=== PATIENT | female | born 1945 ===

== ENCOUNTER → 2016-05-21 | Outpatient (CLI) | payer OTHER ==
[2016-05-21 18:16] LABS: BASO % 0.7 %; BASO ABS # 0.03 K/uL (0-0.2); COMPLETE YES; EOS % 2.5 %; HEMATOCRIT 38.8 % (37-47); LYMPH % 30.6 %; LYMPH ABS # 1.33 K/uL (1.2-3.4); MEAN CORPUSCULAR HEMOGLOBIN 28.6 pg (25-34); MEAN CORPUSCULAR HGB CONC 33.2 g/dl (32-36); MEAN PLATELET VOLUME 10.2 fL (7.4-10.4); NEUT % 60.2 %; PLATELET COUNT 286 K/uL (130-400); RED BLOOD COUNT 4.51 M/uL (4.2-5.4); WHITE BLOOD COUNT 4.35 K/uL (4.8-10.8)
[2016-05-21 18:22] LABS: BLOOD UREA NITROGEN 14 mg/dl (7-18); BUN/CREATININE RATIO 20.4 (10-20); CALCIUM 9.2 mg/dl (8.5-10.1); CARBON DIOXIDE 29 mmol/L (21-32); CHLORIDE 105 mmol/L (98-107); CHOLESTEROL 266 mg/dl (0-200); CREATININE 0.69 mg/dl (0.60-1.20); GLUCOSE 90 mg/dl (70-99); POTASSIUM 3.8 mmol/L (3.5-5.1); SODIUM 141 mmol/L (136-145)
[2016-05-21 18:29] LABS: ALKALINE PHOSPHATASE 66 U/L (45-117); ALT/SGPT 25 U/L (12-78); AST/SGOT 24 U/L (15-37); CHOLESTEROL/HDL RATIO 4.4; HDL CHOLESTEROL 61 mg/dl; LDL CHOLESTEROL CALCULATED 181 mg/dl; TRIGLYCERIDES 122 mg/dl (0-150); VERY LOW DENSITY LIPOPROT CALC 24 mg/dl
[2016-05-21 20:23] LABS: LYME DISEASE AB IGG NEG (NEG); LYME DISEASE AB IGM NEG (NEG)
== END | disposition home or self-care (01) ==
LOC: C.LABMFLN 14:47
PROVIDERS: ATTEND Family Medicine
DX: F32.9 Major depressive disorder, single episode, unspecified (principal); E78.5 Hyperlipidemia, unspecified; M25.50 Pain in unspecified joint; Z11.59 Encounter for screening for other viral diseases

== ENCOUNTER → 2016-08-01 | Outpatient (CLI) | payer OTHER ==
--- NOTE | 2016-08-02 07:55 | MAMMOGRAPHY REPORT ---
BILATERAL DIGITAL SCREENING MAMMOGRAM TOMOSYNTHESIS WITH CAD: 08/01/2016 CLINICAL HISTORY: Routine screening. Patient has no complaints. TECHNIQUE: Breast tomosynthesis in addition to standard 2D mammography was performed. Current study was also evaluated with a Computer Aided Detection (CAD) system. COMPARISON: Comparison is made to exams dated: 05/03/2015 mammogram, 10/18/2014 ultrasound, 09/02/2014 ammogram - [facility], 06/09/2013 mammogram, 12/18/2011 mammogram, and 12/12/2010 [facility] mogram. BREAST COMPOSITION: The tissue of both breasts is heterogeneously dense, which may obscure small ma sses. FINDINGS: No suspicious masses, calcifications, or areas of architectural distortion are noted in e ither breast. There has been no significant interval change compared to prior exams. Biopsy marker clip is again noted in the left anterior breast. Bilateral benign-appearing calcifications are not significantly changed. IMPRESSION: ACR BI-RADS CATEGORY 2: BENIGN There is no mammographic evidence of malignancy. A 1 year screening mammogram is recommended. The p atient will receive written notification of the results. Approximately 10% of breast cancers are not detected with mammography. A negative mammographic repor t should not delay biopsy if a clinically suggestive mass is present. Cher Quinones M.D. /:08/01/2016 15:37:49 Tinner Automatic: Briana Eaton RT(R)(M), [facility] letter sent: Normal 1/2 BI-RADS Code: ACR BI-RADS Category 2: Benign
== END | disposition home or self-care (01) ==
LOC: C.MAMM 14:17
PROVIDERS: ATTEND Family Medicine
DX: Z12.31 Encounter for screening mammogram for malignant neoplasm of breast (principal)

== ENCOUNTER → 2016-10-23 | Outpatient (CLI) | payer OTHER ==
[2016-10-23 18:01] LABS: BASO % 1.2 %; BASO ABS # 0.05 K/uL (0-0.2); COMPLETE YES; EOS % 2.3 %; HEMATOCRIT 39.3 % (37-47); LYMPH % 29.5 %; LYMPH ABS # 1.27 K/uL (1.2-3.4); MEAN CELL VOLUME 87.5 fL (80-100); MEAN CORPUSCULAR HEMOGLOBIN 28.5 pg (25-34); MEAN CORPUSCULAR HGB CONC 32.6 g/dl (32-36); MEAN PLATELET VOLUME 9.7 fL (7.4-10.4); MONO % 5.8 %; NEUT % 61.2 %; PLATELET COUNT 285 K/uL (130-400); RED BLOOD COUNT 4.49 M/uL (4.2-5.4)
[2016-10-23 18:28] LABS: FERRITIN 39.5 ng/ml (8.0-388.0); THYROID STIMULATING HORMONE 3.16 uIu/ml (0.300-4.500)
--- NOTE | 2016-10-31 12:53 | CODING QUERY MEDICAL NECESSITY ---
CQSUPPORTING DIAGNOSIS NEEDED A supporting diagnosis is required for the test/procedure performed on this patient in order for us to be reimbursed by the patient's insurance. Please provide a supporting diagnosis for the following test/procedure listed below next to the test name along with your signature. *If there is no additional diagnosis for this patient that would support the following test/procedure please document that below next to the test/procedure. Test(s)/Procedure(s) that require a supporting diagnosis: DOS 10/23/16 VITAMIN B12 TEST Provider Signature: Date: Thank you Eneida Leiva Health Information Management Once completed, please kindly fax back to [phone] For questions please call [phone]
== END | disposition home or self-care (01) ==
LOC: C.LABMFLN 13:05
PROVIDERS: ATTEND Family Medicine
DX: R68.89 Other general symptoms and signs (principal); R53.83 Other fatigue

== ENCOUNTER → 2017-12-23 | Outpatient (CLI) | payer OTHER ==
--- NOTE | 2017-12-24 14:47 | MAMMOGRAPHY REPORT ---
BILATERAL DIGITAL SCREENING MAMMOGRAM TOMOSYNTHESIS WITH CAD: 12/23/2017 CLINICAL HISTORY: Routine screening. Patient has no complaints. TECHNIQUE: Breast tomosynthesis in addition to standard 2D mammography was performed. Current study w as also evaluated with a Computer Aided Detection (CAD) system. COMPARISON: Comparison is made to exams dated: 08/01/2016 mammogram, 05/03/2015 mammogram, 10/18/2014 [facility] mogram, 09/02/2014 mammogram, 10/18/2014 ultrasound - [facility], and [place]/09/[place]. BREAST COMPOSITION: The tissue of both breasts is heterogeneously dense, which may obscure small mass es. FINDINGS: No suspicious masses, calcifications, or areas of architectural distortion are noted in either breast . There has been no significant interval change compared to prior exams. Scattered bilateral benign-a ppearing calcifications are not significantly changed. A biopsy clip is again noted within the left anterior breast. Nodular asymmetry in the left lateral posterior breast is stable compared to multip le prior exams including the 2009 and 2013 exams. IMPRESSION: ACR BI-RADS CATEGORY 2: BENIGN There is no mammographic evidence of malignancy. A 1 year screening mammogram is recommended.( 019) The patient will receive written notification of the results. Some breast cancers are not detected with mammography. A negative mammographic report should not franky y biopsy if a clinically suggestive mass is present. Cher Quinones M.D. ah/:12/23/2017 14:50:27 Cylinder Die Machine Helper: RT Toñito(Juana)(M), [facility] letter sent: Normal 1/2 BI-RADS Code: ACR BI-RADS Category 2: Benign
== END | disposition home or self-care (01) ==
LOC: C.MAMM 12:27
PROVIDERS: ATTEND Family Medicine
DX: M85.89 Other specified disorders of bone density and structure, multiple sites (principal); Z78.0 Asymptomatic menopausal state; Z12.31 Encounter for screening mammogram for malignant neoplasm of breast

== ENCOUNTER 2019-06-12 10:46 | Inpatient (IN) ==
--- NOTE | 2019-05-12 20:20 | PAT Medication Instructions ---
Medication Instructions Date of Service May 12, 2019 Home Medications Medication Instructions Recorded Lactobacillus 1 cap PO DAILY #90 cap 12/22/18 acidophilus-Bifidobac.animalis 31 billion cell capsule buspirone 5 mg tablet 5 mg PO BID #180 tab 12/22/18 cholecalciferol (vitamin D3) 25 1,000 units PO DAILY #90 cap 12/22/18 mcg (1,000 unit) capsule cyanocobalamin (vitamin B-12) 1,000 mcg PO DAILY #90 tab 12/22/18 1,000 mcg tablet alendronate 70 mg tablet 70 mg PO WEEKLY #4 tab 01/06/19 Lactobacillus acidophilus-Bifidobac.animalis 31 billion cell capsule 1 cap PO DAILY #90 cap 12/22/18 [Rx Confirmed 05/12/19] buspirone 5 mg tablet 5 mg PO BID #180 tab 12/22/18 [Rx Confirmed 05/12/19] cholecalciferol (vitamin D3) 25 mcg (1,000 unit) capsule 1,000 units PO DAILY #90 cap 12/22/18 [Rx Confirmed 05/12/19] cyanocobalamin (vitamin B-12) 1,000 mcg tablet 1,000 mcg PO DAILY #90 tab 12/22/18 [Rx Confirmed 05/12/19] alendronate 70 mg tablet 70 mg PO WEEKLY #4 tab 01/06/19 [Rx Confirmed 05/12/19] calcium carbonate 780 mg PO DAILY 05/12/19 [History Confirmed 05/12/19] melatonin 5 mg PO HS 05/12/19 [History Confirmed 05/12/19] multivitamin 1 tab PO QAM 05/12/19 [History Confirmed 05/12/19] rosuvastatin 10 mg PO QPM 05/12/19 [History Confirmed 05/12/19] sertraline 100 mg PO QPM 05/12/19 [History Confirmed 05/12/19] Continue as directed alendronate 70 mg tablet 70 mg PO WEEKLY #4 tab 01/06/19 [Rx Confirmed 05/12/19] DO NOT take the morning of surgery Lactobacillus acidophilus-Bifidobac.animalis 31 billion cell capsule 1 cap PO DAILY #90 cap 12/22/18 [Rx Confirmed 05/12/19] cholecalciferol (vitamin D3) 25 mcg (1,000 unit) capsule 1,000 units PO DAILY #90 cap 12/22/18 [Rx Confirmed 05/12/19] cyanocobalamin (vitamin B-12) 1,000 mcg tablet 1,000 mcg PO DAILY #90 tab 12/22/18 [Rx Confirmed 05/12/19] calcium carbonate 780 mg PO DAILY 05/12/19 [History Confirmed 05/12/19] multivitamin 1 tab PO QAM 05/12/19 [History Confirmed 05/12/19] Take morning of surgery With a small sip of water, OTHERWISE NOTHING TO EAT OR DRINK AFTER MIDNIGHT: buspirone 5 mg tablet 5 mg PO BID #180 tab 12/22/18 [Rx Confirmed 05/12/19] Take evening before surgery buspirone 5 mg tablet 5 mg PO BID #180 tab 12/22/18 [Rx Confirmed 05/12/19] melatonin 5 mg PO HS 05/12/19 [History Confirmed 05/12/19] rosuvastatin 10 mg PO QPM 05/12/19 [History Confirmed 05/12/19] sertraline 100 mg PO QPM 05/12/19 [History Confirmed 05/12/19] Other Notes If you have any questions please call us at [phone] or [phone] or [phone] or [phone]
--- NOTE | 2019-05-13 13:14 | Anesthesiology Consultation ---
Date of Service May 13, 2019 Assessment & Plan (1) Encounter for pre-operative examination: Chart Review Chart Review: Acceptable Risk for Surgery and Patient seen in Pre Admission Testing Teaching & Discussion Pre-Anesthesia Teaching/Discussion Notes: Instructed NPO after midnight before surgery,except medications with 15 cc of water. Medication instructions provided according to the PAT guidelines. History Surgery Operation Date: 06/12/19 08:50 Proposed Procedures p Left Anterior Total Hip Arthroplasty - Clemente Vargas, Height/Weight Height: 5 ft 2.5 in Weight: 57 kg Allergies Allergy/AdvReac Type Severity Reaction Status Date / Time cephalexin [From Keflex] Allergy Rash Verified 05/12/19 16:04 ciprofloxacin Allergy Rash Verified 05/12/19 16:04 clarithromycin [From Biaxin] Allergy Rash Verified 05/12/19 16:04 moxifloxacin [From Avelox] Allergy Rash Verified 05/12/19 16:04 niacin AdvReac Flushing Verified 05/12/19 16:04 Medications Home Medications Medication Instructions Recorded Confirmed Last Taken Lactobacillus 1 cap PO DAILY #90 cap 12/22/18 05/13/19 Unknown acidophilus-Bifidobac.animalis 31 billion cell capsule buspirone 5 mg tablet 5 mg PO BID #180 tab 12/22/18 05/13/19 Unknown cholecalciferol (vitamin D3) 25 1,000 units PO DAILY #90 cap 12/22/18 05/13/19 Unknown mcg (1,000 unit) capsule cyanocobalamin (vitamin B-12) 1,000 mcg PO DAILY #90 tab 12/22/18 05/13/19 Unknown 1,000 mcg tablet calcium carbonate 780 mg PO DAILY 05/12/19 05/13/19 Unknown melatonin 5 mg PO HS 05/12/19 05/13/19 Unknown multivitamin 1 tab PO QAM 05/12/19 05/13/19 Unknown rosuvastatin 10 mg PO QPM 05/12/19 05/13/19 Unknown sertraline 100 mg PO QPM 05/12/19 05/13/19 Unknown amoxicillin 500 mg tablet 2,000 mg PO ONCE #4 tab 05/13/19 05/13/19 Unknown Past Medical History Medical History Anxiety disorder (Chronic) Depression (Chronic) Hyperlipidemia (Chronic) Osteoarthritis Osteopenia (Chronic) Exercise / Class Metabolic Activity II 4-5 Yardwork/Stairs/Walk up hill (one flight of stairs (no chest pain/no s ob)) Past Family History Family History Mother CHF (congestive heart failure) Father Lung cancer Sister Family history of diabetes mellitus Grandmother (Paternal) Family history of diabetes mellitus Aunt Family history of diabetes mellitus Other No family history of adverse response to anesthesia Past Surgical History Surgical History H/O colonoscopy H/O dilation and curettage History of bunionectomy History of oral surgery S/P tonsillectomy Past Anesthesia History No Hx of Anesthesia Complications and No Family Hx of Anesthesia Complications History of PONV No Hx of PONV and No Hx of Motion Sickness Social History Smoking Status: Former smoker Do You Dip or Chew Tobacco: No Smoking End Date: QUIT MANY YEARS AGO Hx Alcohol Use: Yes Alcohol type: wine alcohol intake frequency: a few times a week Hx Substance Use: No substance use type: does not use Review of Systems Patient denies chest pain, shortness of breath, dyspnea on exertion, reflux, cough, wheezing, palpitations. Physical Exam Vital Signs VITALS BP 125/61 P 61 TEMP 97.7 SP02 95%RA RESP 16 PHYSICAL Full neck and c-spine range of motion. Full TMJ range of motion. TMD 3 finger breaths Mallampati Score 3 Dentition: upper partial, upper front permanent bridge, several caps Lungs: clear throughout to auscultation Cardiac: regular rate and rhythm, no murmurs noted Spine: normal Carotid arteries: negative bruit Extremities: no edema Testing Laboratory Results 05/13/19 13:32 05/13/19 13:32 PT 10.0 Seconds (9.0-12.0) 05/13/19 13:32 INR 1.0 (0.9-1.1) 05/13/19 13:32 APTT 26.8 Seconds (21.0-31.0) 05/13/19 13:32 Blood Type A Positive 05/13/19 13:32 Antibody Screen NEGATIVE 05/13/19 13:32 *Surgeon office and PCP made aware of low WBC* Electrocardiogram Date: 05/13/19 Findings: + NSR @ (66) Chest X-Ray Date: 05/13/19 Findings: + NAD
--- NOTE | 2019-05-13 13:59 | XRay Report ---
XR chest Pre-admission PA/Lat CLINICAL HISTORY: pat COMPARISON STUDY: No previous studies for comparison. FINDINGS: The bones soft tissues and hemidiaphragms are normal. The cardiomediastinal silhouette is n ormal. The lungs are clear. The pulmonary vasculature is normal. IMPRESSION: Negative chest. ACT 112: Negative or not required by law. The above report was generated using voice recognition software. It may contain grammatical, syntax or spelling errors. Electronically signed by: Jerel Levine M.D. 05/13/2019 1:57 PM
--- NOTE | 2019-05-13 14:42 | Electrocardiogram Report ---
Test Reason : Blood Pressure : / mmHG Vent. Rate : 066 BPM Atrial Rate : 066 BPM P-R Int : 152 ms QRS Dur : 084 ms QT Int : 412 ms P-R-T Axes : 069 079 079 degrees QTc Int : 431 ms Normal sinus rhythm Normal ECG No previous ECGs available Confirmed by Niels Ross ([id number]) on 05/13/2019 2:42:39 PM Referred By: Clemente Vargas Confirmed By:Niels Ross
[2019-05-13 14:50] LABS: Partial Thromboplastin Time 26.8 Seconds (21.0-31.0)
[2019-05-13 14:52] LABS: Basophils # (auto) 0.02 K/uL (0-0.2); Basophils % (auto) 0.5 %; Eosinophils # (auto) 0.14 K/uL (0-0.5); Eosinophils % (auto) 3.8 %; Hematocrit (blood only) 37.1 % (37-47); Hemoglobin 12.3 g/dL (12.0-16.0); Lymphocytes # (auto) 1.16 K/uL (1.2-3.4); Lymphocytes % (auto) 31.8 %; Mean Corpuscular Hemoglobin 28.9 pg (25-34); Mean Corpuscular Hgb Conc 33.2 g/dL (32-36); Mean Corpuscular Volume 87.3 fL (80-100); Monocytes # (auto) 0.23 K/uL (0.11-0.59); Monocytes % (auto) 6.3 %; Neutrophils % (auto) 57.6 %; Platelet Count 306 K/uL (130-400); RDW Coefficient of Variation 13.6 % (11.5-14.5); RDW Standard Deviation 43.5 fL (36.4-46.3); Red Blood Count 4.25 M/uL (4.2-5.4); White Blood Count 3.65 K/uL (4.8-10.8)
[2019-05-13 16:06] LABS: BUN Creatinine Ratio 21.8 (10-20); Calcium 9.3 mg/dl (8.5-10.1); Creatinine Clr Calc Pharmacy 59.6 ml/min; Est GFR (African American) 100.6; Est GFR (Non-African American) 86.8; Potassium 3.9 mmol/L (3.5-5.1)
--- NOTE | 2019-06-11 15:59 | History & Physical Report ---
Date of Service June 11, 2019 Assessment & Plan (1) Degenerative joint disease (DJD) of hip: We will proceed with a left anterior total hip arthroplasty. Postoperatively she will be started on aspirin for DVT prophylaxis. She will be kept overnight in the hospital for postoperative medical management. She plans to use energy physical therapy upon discharge. Present on Admission?: Yes History of Present Illness Chief Complaint: Primary osteoarthritis of the left hip Primary Care Provider: Amberly Dorsey MD Jada is a pleasant 74-year-old female who has been dealing chronic increasing left hip and groin pain. X-rays and clinical examination have been diagnostic for advanced osteoarthritis of the left hip. After failing conservative treatment, she has elected to proceed with a left anterior total hip arthroplasty. Allergies Allergy/AdvReac Type Severity Reaction Status Date / Time cephalexin [From Keflex] Allergy Rash Verified 05/26/19 14:59 ciprofloxacin Allergy Rash Verified 05/26/19 14:59 clarithromycin [From Biaxin] Allergy Rash Verified 05/26/19 14:59 moxifloxacin [From Avelox] Allergy Rash Verified 05/26/19 14:59 niacin AdvReac Flushing Verified 05/26/19 14:59 Home Medications Home Medications Medication Instructions Recorded Confirmed Type Lactobacillus 1 cap PO DAILY #90 cap 12/22/18 05/26/19 Rx acidophilus-Bifidobac.animalis 31 billion cell capsule buspirone 5 mg tablet 5 mg PO BID #180 tab 12/22/18 05/26/19 Rx cholecalciferol (vitamin D3) 25 1,000 units PO DAILY #90 cap 12/22/18 05/26/19 Rx mcg (1,000 unit) capsule melatonin 5 mg PO HS 05/12/19 05/26/19 History multivitamin 1 tab PO QAM 05/12/19 05/26/19 History sertraline 100 mg PO QPM 05/12/19 05/26/19 History amoxicillin 500 mg tablet 2,000 mg PO ONCE #4 tab 05/13/19 05/26/19 Rx cyanocobalamin (vitamin B-12) 5,000 mcg PO DAILY tab 05/26/19 History 1,000 mcg tablet rosuvastatin 10 mg tablet 10 mg PO QPM #90 tab 05/26/19 05/26/19 Rx Past Med/Surg History Medical History Anxiety disorder (Chronic) Degenerative joint disease (DJD) of hip Depression (Chronic) Hyperlipidemia (Chronic) Osteopenia (Chronic) Surgical History H/O colonoscopy (Resolved) H/O dilation and curettage (Resolved) History of bunionectomy (Resolved) History of oral surgery S/P tonsillectomy (Resolved) Family History Mother CHF (congestive heart failure) Father Lung cancer Sister Family history of diabetes mellitus Grandmother (Paternal) Family history of diabetes mellitus Aunt Family history of diabetes mellitus Other No family history of adverse response to anesthesia Denies family history of Ovarian cancer Prostate cancer Myocardial infarction Breast cancer Colorectal cancer Social History Preferred Language: Thai Communication Ability: Effective Visual Impairment: No Limitations Hearing Ability: Normal Real Estate Clerk Required: No Beliefs That Will Affect Care: None marital status: Single Current Living Situation: Alone current occupational status: retired Feels Safe at Home: Yes Smoking Status: Former smoker Second Hand Exposure: Yes (25 + YEARS AGO) ; Hx Alcohol Use: Yes Alcohol type: wine Alcohol Intake Frequency: Weekly Alcohol Intake Frequency Comment: several days a week Hx Substance Use: No Dental Care, Regularly: Yes Physical Activity Frequency: Daily Review of Systems All systems reviewed & are unremarkable except as noted in HPI & below Physical Exam Constitutional: WD/WN, vitals as above Eyes: PERRL, conjunctivae normal, anicteric sclerae ENMT: external ear and nose normal, oropharynx normal Neck: trachea midline, no thyromegaly Respiratory: normal respiratory effort Cardiovascular: RRR, no murmur, no edema Gastrointestinal (Abdomen): normal bowel sounds, soft, nontender, no hepatosplenomegaly Musculoskeletal: Physical examination of the left hip reveals decreased range of motion with flexion, internal and external rotation. There is significant groin pain with forced internal rotation of the hip his leg lengths are essentially equal. Psychiatric: A+Ox3, euthymic affect Results & Data Diagnostic Findings Radiographs of the left hip and pelvis demonstrate advanced osteoarthritis with joint space narrowing osteophyte formation and [id number] articulation.
[~2019-06-12 10:46] MED LIST: ACETAMINOPHEN 500 MG TAB PO SCH; BUPIVACAINE 0.5 % 5 MG/1 ML PF 10ML VIAL ONE; CEFAZOLIN 1000MG 1,000 MG/7.5 ML SYR IV SCH; CLINDAMYCIN 600 MG/54 ML BAG IV SCH; FAMOTIDINE 20 MG TAB PO SCH; GABAPENTIN 300 MG CAP PO SCH; LR 500ML BOLUS, THEN 15ML/HR IV SCH; LR 60ML/HR IV SCH; MIDAZOLAM HCL 1 MG/ML 2ML VIAL ONE; ROPIVACAINE 0.5% HCL/PF 150 MG, BUPIVACAINE 0.5% MPF 30 ML, EPINEPHrine 30MG/30ML (OR U... INFIL SCH; TRANEXAMIC ACID 1,000 MG **IV Intra-op IV SCH; TRANEXAMIC ACID 1,000 MG **IV Pre-op IV SCH; dexAMETHasone 4 MG TAB PO SCH; fentaNYL citrate 100 MCG/2 ML VIAL ONE
[2019-06-12] MEDS ORDERED: PROPOFOL IV EMULSION 10 MG/ML 20 ML VIAL IV ONE ×2 (10:58→13:21)
[2019-06-12] MEDS ORDERED: LIDOCAINE HCL 2% 2 ML VIAL/AMP(20MG/ML) INFIL ONE (10:58)
[2019-06-12] MEDS ORDERED: DEXAMETHASONE SOD INJ 4 MG/ML VIAL ONE (10:58)
[2019-06-12] MEDS ORDERED: ONDANSETRON INJ 2 MG/ML 2 ML VIAL ONE (10:58)
--- NOTE | 2019-06-12 10:59 | History & Physical Bridge Note ---
Date of Service June 12, 2019 History & Physical Bridge Note I have examined the patient, reviewed the History & Physical and in the interval since the performance of the History & Physical I have noted the following changes of clinical significance: no changes noted
[2019-06-12] MEDS ORDERED: CLINDAMYCIN 600 MG/54 ML D5W IV ONE (11:45)
[2019-06-12] MEDS ORDERED: ORTHO JOINT ANESTHETIC ONE (11:47)
[2019-06-12] MEDS ORDERED: ePHEDrine sulfate 50 MG/ML AMP ONE (12:38)
[2019-06-12] MEDS ORDERED: PHENYLEPHRINE 100MCG/ML 5ML SYR ONE (12:56)
[2019-06-12] MEDS ORDERED: ePHEDrine sulfate 50 MG/ML AMP IV PRN (13:08)
[2019-06-12] MEDS ORDERED: ATROPINE SULFATE 0.1 MG/ML 10ML SYR IV PRN (13:08)
[2019-06-12] MEDS ORDERED: ONDANSETRON INJ 2 MG/ML 2 ML VIAL IV PRN (13:08)
[2019-06-12] MEDS ORDERED: fentaNYL citrate 100 MCG/2 ML VIAL IV PRN (13:08)
--- NOTE | 2019-06-12 13:41 | Operative Report ---
PG Post Operative Report Pre & Post Diagnosis Operation Date: 06/12/19 13:30 Pre-Op Diagnosis: Left Hip Degenerative Joint Disease Post-Op Diagnosis: Left Hip Degenerative Joint Disease I identified the patient and participated in the time-out.: Yes Procedure Operation Date: 06/12/19 13:30 Actual Procedures p Left Anterior Total Hip Arthroplasty, Uncemented(Left) - Clemente Vargas DO Surgeon Clemente Vargas, Vice President Clemente Fernández PAC Estimated Blood Loss 300 Findings Consistent with Post-Op Diagnosis Specimens Left femoral head Complications none Disposition Disposition: Recovery Room Indications Jada is a pleasant 74-year-old female who presented to my office with complaints of chronic increasing left hip pain. X-rays and clinical examination were diagnostic for advanced osteoarthritis of the left hip. After failing conservative treatment, she elected to proceed with a left anterior total hip arthroplasty. Description of Procedure Implants used I used a Biomet Taperloc total hip arthroplasty system with a size 10 high offset Taperloc stem, a 50 mm G7 cup with a 25mm screw, an E1 polyethylene liner, a 36 mm ceramic head with a -3 neck. Jada arrived at the hospital for the above procedure. She was seen in the preoperative holding area and the operative extremity was identified and signed. She was given a spinal anesthetic, a preoperative antibiotic, and TXA. She was then taken back to the operating room and laid on the table in the supine position. She was given basic sedation. The operative leg was secured to a Puristst leg positioner. The hip was then prepped and draped in sterile fashion. A timeout was done and the patient and the operative extremity was properly identified. An anterior approach was used. Dissection was taken down through the fascia and the tensor muscle belly was retracted laterally and the rectus was retracted medially. The circumflex vessels were identified and ligated. The capsule was then incised and tagged for later repair. The femoral neck was then cut and the femoral head was removed. The acetabulum was exposed. Time was spent doing a complete circumferential labral release. Sequential reaming of the acetabulum up to a size 49 reamer was done. Final reamings were done under fluoroscopy to ensure appropriate version. A Biomet 50 mm G7 cup was then impacted into place. A single 25 mm screw was placed. The E1 polyethylene liner was then snapped into place. Surrounding soft tissues were then injected with 100 cc of an orthopedic pain control cocktail. The proximal femur was then exposed. Sequential broaching up to a size 10 broach was done. Off that broach a size 36 head with a -3 neck was trialed. The hip was reduced and fluoroscopic images showed anatomic alignment of the implants in acceptable length. The broach was removed. The final size 10 high offset Taperloc stem was then impacted into place. A ceramic 36 mm head with a -3 neck was then impacted onto the stem and the hip was reduced. Final fluoroscopic images showed anatomic alignment of the hip. The capsule was then closed with #1 Vicryl suture. A dilute betadyne lavage was then done for 3 minutes. The joint was then irrigated with normal saline solution. The fascia was closed with #1 PDS suture. Skin was closed with 2-0 Vicryl, callie, and a Meseret VAC dressing. She was then transferred to a hospital bed and taken to the post anesthesia care unit in stable condition. She tolerated the procedure well. I attest to the content of the Intraoperative Record and any orders documented therein. Any exceptions are noted below.
--- NOTE | 2019-06-12 14:29 | XRay Report ---
XR hip 1V LT w pelvis HISTORY: 74 years-old Female IN PACU - A/P PELVIS and LATERAL HIP left hip total joint arthroplasty COMPARISON: Fluoroscopic images of same day TECHNIQUE: AP view of the pelvis with crosstable lateral view of the left hip FINDINGS: Left hip total joint arthroplasty demonstrates satisfactory alignment. No acute fracture or opaque fo reign body. Lateral skin callie are noted along with expected postsurgical soft tissue swelling and deep tissue air. IMPRESSION: Left hip total joint arthroplasty with expected postoperative findings. ACT 112: Negative or not required by law. The above report was generated using voice recognition software. It may contain grammatical, syntax o r spelling errors. Electronically signed by: Henri Robison M.D. 06/12/2019 2:28 PM
--- NOTE | 2019-06-12 14:33 | Anesthesiology Progress Note ---
Date of Service June 12, 2019 Anesthesia Post Procedure Vital Signs Vital Signs: Temp Pulse Pulse Resp BP BP Pulse Ox 06/12/19 14:25 93 H 15 122/64 95 06/12/19 14:15 99 H 16 114/55 L 96 06/12/19 14:08 37.0 C 105 H 13 100/57 L 100 06/12/19 11:09 36.8 C 64 20 126/66 97 Transfer of Care Handoff Completed per policy Notes Mental Status: alert / awake / arousable Patient Amnestic to Procedure: Yes Nausea / Vomiting: adequately controlled Pain: adequately controlled Airway Patency, RR, SpO2: stable & adequate BP & HR: stable & adequate Hydration State: stable & adequate Neuraxial Anesthesia: was administered and sensory block is resolving Anesthetic Complications: no major complications apparent
--- NOTE | 2019-06-12 14:37 | Fluoroscopy Report ---
FL hip LT 1V CLINICAL HISTORY: LEFT ANTERIOR RITO COMPARISON STUDY: None FLUOROSCOPY TIME: 2420. NUMBER OF FLUOROSCOPIC IMAGES: 2 FINDINGS: Image #1 demonstrates resection of femoral head with placement of an acetabular cup image # 2 demonstrates a total left hip arthroplasty. There is no dislocation. IMPRESSION: Fluoroscopic spot images demonstrating a total left hip arthroplasty. There is no eviden ce of dislocation. ACT 112: Negative or not required by law. Electronically signed by: Ayaz Cohn M.D. 06/12/2019 2:36 PM
[2019-06-12] MEDS ORDERED: OXYCODONE HCL IR 5 MG TAB (IMMEDIATE RELEASE) PO PRN (15:45)
[2019-06-12] MEDS ORDERED: CEFAZOLIN 2000MG 2,000 MG/15 ML SYR IV SCH (15:45)
[2019-06-12] MEDS ORDERED: METOCLOPRAMIDE HCL INJ 5 MG/ML 2 ML VIAL IV PRN (15:45)
[2019-06-12] MEDS ORDERED: HYDROmorphone INJ 0.5 MG/0.5 ML SYR IV PRN (15:45)
[2019-06-12] MEDS ORDERED: NALOXONE HCL 0.4 MG/1 ML VIAL/CARP IV PRN (15:45)
[2019-06-12] MEDS ORDERED: MAGNESIUM HYDROXIDE SUSP 30 ML UDC PO PRN (15:45)
[2019-06-12] MEDS ORDERED: bisacodyL 10 MG SUPP PR PRN (15:45)
[2019-06-12] MEDS: KETOROLAC TROMETHAMINE 15 MG/ML VIAL IV SCH ×2 (17:39→21:11)
[2019-06-12] MEDS: SODIUM CHLORIDE 0.9% 1000ML 1,000 ML IV SCH (19:34)
[2019-06-12] MEDS: CLINDAMYCIN 600 MG/54 ML BAG IV SCH (19:35)
[2019-06-12] MEDS ORDERED: NON-FORMULARY MEDICATION (Melatonin 5 MG) PO SCH (21:00)
[2019-06-12] MEDS: ASPIRIN 81 MG ECTAB PO SCH (21:09)
[2019-06-12] MEDS: SENNA 8.6 MG TAB PO SCH ×2 (21:09→21:15)
[2019-06-12] MEDS: SERTRALINE HCL 100 MG TABLET PO SCH ×2 (21:09→21:13)
[2019-06-12] MEDS: ROSUVASTATIN CALCIUM 10 MG TAB PO SCH ×2 (21:09→21:13)
[2019-06-12] MEDS: DOCUSATE SODIUM 100 MG CAP PO SCH (21:09)
[2019-06-12] MEDS: ACETAMINOPHEN 500 MG TAB PO SCH (21:10)
[2019-06-13] MEDS: SODIUM CHLORIDE 0.9% 1000ML 1,000 ML IV SCH (02:24)
[2019-06-13] MEDS: KETOROLAC TROMETHAMINE 15 MG/ML VIAL IV SCH ×4 (04:11→22:08)
[2019-06-13 05:58] LABS: Basophils # (auto) 0.01 K/uL (0-0.2); Basophils % (auto) 0.1 %; Hematocrit (blood only) 26.5 % (37-47); Hemoglobin 8.9 g/dL (12.0-16.0); Immature Granulocytes # (auto) 0.02 K/uL (0.00-0.02); Immature Granulocytes % (auto) 0.2 %; Lymphocytes # (auto) 0.54 K/uL (1.2-3.4); Lymphocytes % (auto) 5.1 %; Mean Corpuscular Hemoglobin 28.7 pg (25-34); Mean Corpuscular Hgb Conc 33.6 g/dL (32-36); Mean Corpuscular Volume 85.5 fL (80-100); Monocytes % (auto) 4.7 %; Neutrophils % (auto) 89.9 %; Platelet Count 229 K/uL (130-400); RDW Coefficient of Variation 13.8 % (11.5-14.5); RDW Standard Deviation 43.3 fL (36.4-46.3); White Blood Count 10.57 K/uL (4.8-10.8)
[2019-06-13] MEDS: ACETAMINOPHEN 500 MG TAB PO SCH ×3 (06:21→22:07)
[2019-06-13] MEDS: CLINDAMYCIN 600 MG/54 ML BAG IV SCH (06:21)
[2019-06-13 06:23] LABS: BUN Creatinine Ratio 21.2 (10-20); Calcium 8.7 mg/dl (8.5-10.1); Est GFR (African American) 91.7; Est GFR (Non-African American) 79.1; Potassium 4.2 mmol/L (3.5-5.1)
[2019-06-13] MEDS ORDERED: dexAMETHasone 4 MG TAB PO SCH (08:00)
[2019-06-13] MEDS: ASPIRIN 81 MG ECTAB PO SCH ×2 (08:40→20:53)
[2019-06-13] MEDS: DOCUSATE SODIUM 100 MG CAP PO SCH ×2 (08:42→20:53)
[2019-06-13] MEDS: MULTIVITAMIN TAB PO SCH (08:42)
--- NOTE | 2019-06-13 08:44 | Orthopedic Progress Note ---
Date of Service June 13, 2019 Assessment & Plan (1) History of left hip replacement: Overall she is doing very well. She is not having any pain in the left hip. She is completely asymptomatic with regards to her hypotension and her anemia. She will be seen by physical therapy this morning for ambulation and range of motion exercises. She would like to go home today. As long as she is asymptomatic and feeling well later today she can be discharged to home. If she becomes more symptomatic with signs such as lightheadedness or fatigue then we will keep her till tomorrow. Present on Admission?: Yes Subjective Jada was seen and examined at bedside this morning. Overall she is doing very well. She is not having much pain in her hip. She has been up and ambulating to the bathroom. She does not have any lightheadedness or nausea. She feels asymptomatic given her hypotension and her anemia. She has good color and states that she feels fine. Physical Exam Musculoskeletal: On physical examination of the left hip, the Meseret VAC dressing is to suction. Her leg lengths are equal. She has active dorsiflexion and plantarflexion of her left ankle. Sensation is intact throughout. Results & Data ([facility]) Vital Signs (Past 12 Hours) Vital Signs Temp Pulse Resp BP Pulse Ox 06/13/19 07:08 36.7 C 77 16 91/46 L 98 06/13/19 00:15 36.7 C 77 16 102/64 95 Laboratory Results H & H 05/13/19 06/13/19 Range/Units 13:32 05:35 Hgb 12.3 8.9 L (12.0-16.0) g/dL Hct 37.1 26.5 L (37-47) % Coagulation 05/13/19 Range/Units 13:32 INR 1.0 (0.9-1.1) Diagnostic Findings Postoperative x-rays of the left hip show the prosthesis to be in anatomic alignment without any evidence of fracture, dislocation, or loosening. PG Care Time/CCT Total # of Minutes Spent Total Time Spent with Patient: Total time spent is greater than 50% in coordination of care (as documented) at patient's floor/unit and/or counseling patient: Coding Level of Care Code None Diagnoses History of left hip replacement Z96.642
[2019-06-13] MEDS: ROSUVASTATIN CALCIUM 10 MG TAB PO SCH (20:53)
[2019-06-13] MEDS: SENNA 8.6 MG TAB PO SCH (20:53)
[2019-06-13] MEDS: SERTRALINE HCL 100 MG TABLET PO SCH (20:53)
[2019-06-14] MEDS: KETOROLAC TROMETHAMINE 15 MG/ML VIAL IV SCH ×2 (04:19→10:08)
[2019-06-14] MEDS: ONDANSETRON INJ 2 MG/ML 2 ML VIAL IV PRN ×2 (04:25→10:07)
[2019-06-14] MEDS: ACETAMINOPHEN 500 MG TAB PO SCH (05:48)
[2019-06-14 05:53] LABS: Basophils # (auto) 0.01 K/uL (0-0.2); Basophils % (auto) 0.1 %; Eosinophils # (auto) 0.01 K/uL (0-0.5); Eosinophils % (auto) 0.1 %; Hematocrit (blood only) 28.2 % (37-47); Hemoglobin 9.1 g/dL (12.0-16.0); Immature Granulocytes # (auto) 0.01 K/uL (0.00-0.02); Immature Granulocytes % (auto) 0.1 %; Lymphocytes # (auto) 1.47 K/uL (1.2-3.4); Lymphocytes % (auto) 17.7 %; Mean Corpuscular Hemoglobin 28.5 pg (25-34); Mean Corpuscular Hgb Conc 32.3 g/dL (32-36); Mean Corpuscular Volume 88.4 fL (80-100); Monocytes # (auto) 0.58 K/uL (0.11-0.59); Neutrophils # (auto) 6.21 K/uL (1.4-6.5); Platelet Count 221 K/uL (130-400); RDW Coefficient of Variation 14.3 % (11.5-14.5); RDW Standard Deviation 46.7 fL (36.4-46.3); Red Blood Count 3.19 M/uL (4.2-5.4); White Blood Count 8.29 K/uL (4.8-10.8)
--- NOTE | 2019-06-14 07:51 | Orthopedic Progress Note ---
Date of Service June 14, 2019 Assessment & Plan (1) History of left hip replacement: Overall she is doing well. She is not having much pain in the left hip. She is on aspirin for DVT prophylaxis. She will be seen by physical therapy today for ambulation and range of motion exercises. She can be discharged home later today. She will follow-up with orthopedics in 2 weeks. Present on Admission?: Yes Subjective Jada was seen and examined at bedside this morning. Overall she is doing fairly well. She is not having much pain in the left hip. She has been up and ambulating well with physical therapy. She stated yesterday because she was having a little bit of nausea. She is ready to go home today. She has no complaints. Physical Exam Musculoskeletal: On physical examination of the left hip, the Meseret VAC dressing is to suction. Her leg lengths are equal. She has active dorsiflexion and plantarflexion of her left ankle. Results & Data ([facility]) Vital Signs (Past 12 Hours) Vital Signs Temp Pulse Resp BP Pulse Ox 06/14/19 06:19 36.8 C 57 L 16 124/66 100 06/13/19 23:25 36.7 C 56 L 14 110/69 100 06/13/19 22:12 113/57 L Laboratory Results H & H 05/13/19 06/13/19 06/14/19 Range/Units 13:32 05:35 05:17 Hgb 12.3 8.9 L 9.1 L (12.0-16.0) g/dL Hct 37.1 26.5 L 28.2 L (37-47) % Coagulation 05/13/19 Range/Units 13:32 INR 1.0 (0.9-1.1) PG Care Time/CCT Total # of Minutes Spent Total Time Spent with Patient: Total time spent is greater than 50% in coordination of care (as documented) at patient's floor/unit and/or counseling patient: Coding Level of Care Code None Diagnoses History of left hip replacement Z96.642
--- NOTE | 2019-06-14 07:52 | Discharge Summary ---
Date of Service June 14, 2019 Admission HPI Per Admitting Provider Jada is a pleasant 74-year-old female who has been dealing chronic increasing left hip and groin pain. X-rays and clinical examination have been diagnostic for advanced osteoarthritis of the left hip. After failing conservative treatment, she has elected to proceed with a left anterior total hip arthroplasty. Principal Diagnosis Left total hip arthroplasty Discharge Data Allergies Allergy/AdvReac Type Severity Reaction Status Date / Time cephalexin [From Keflex] Allergy Rash Verified 05/26/19 14:59 ciprofloxacin Allergy Rash Verified 05/26/19 14:59 clarithromycin [From Biaxin] Allergy Rash Verified 05/26/19 14:59 moxifloxacin [From Avelox] Allergy Rash Verified 05/26/19 14:59 niacin AdvReac Flushing Verified 05/26/19 14:59 Consultations 06/13/19 08:00 Consult Case Management - Discharge Planning Routine Procedures Performed Operation Date: 06/12/19 13:30 Actual Procedures p Left Anterior Total Hip Arthroplasty, Uncemented(Left) - Clemente Vargas DO Ordered Studies 06/12/19 13:30 FL fluoroscopy <1hr Routine FL hip LT 1V Routine Hospital Course (1) History of left hip replacement: On June 12, 2019 Jada arrived at [facility] and underwent a left anterior total hip arthroplasty without complication. She had a spinal anesthetic. Postoperatively she was started on aspirin for DVT prophylaxis and discharged to general orthopedic floors. Her hospital course was uneventful. On postop day #1 her H&H was stable and her pain was well controlled. She was able to participate well with physical therapy. She was feeling a little bit nauseous and was not ready to go home. On postop day #2 she was feeling better. She once again participated well with physical therapy. She was then discharged home. She will follow-up with orthopedics in 2 weeks. Total Time Total Time Spent Total Time Spent (In Minutes): 20 Discharge Plan Discharge Items Patient Disposition: Home - Home Health Services Reason For Visit: Left Hip Degenerative Joint Disease Discharge Diagnosis: Left total hip arthroplasty Activity: As commented below Non-emergency contact: Surgeon Call non-emergency contact if: your wound has increased redness and your wound has increased drainage Follow-up/Referrals: Madelyn Ralph MD [Primary Care Provider] - Diet: Regular Addtl Attending Provider Instructions: Activity and Therapy Recommendations: * If you are using [facility] then therapy will be provided at your home until they feel you have accomplished all of your goals. * If you are using [facility] then Physical Therapy will be provided until they feel you are ready to start Outpatient Physical Therapy. * If you are not using home therapy then Outpatient Physical Therapy should start about 3-5 days from your day of surgery. Therapy will last about 6-10 weeks * You were shown a series of exercises in the hospital. Do these exercises three times each day including the exercises you were shown in physical therapy. * Get up and walk several times each day.~ For the first four weeks, try not to stand or walk for more than one hour at a time. If you do stand or walk for more than one hour, you will not hurt anything, but your leg will likely swell.~~ * As you feel comfortable, you may change from the walker or crutches to a cane and~then to independent walking. Medications: * Narcotic You will likely be sent home from the hospital with a prescription for the narcotic pain medication that worked best throughout your stay. * Aspirin Most patients will be required to take Aspirin 81mg twice a day for 6 weeks after surgery. This is obtained [id number] and a prescription is not necessary. * Other medications may be prescribed for specific circumstances. If you have any questions, please call the office at . * Resume previous home medications unless otherwise instructed TEDs/Elastic Stockings: The white elastic stockings help limit swelling and prevent blood clots from forming in your legs. The more you wear them, the more they work. Wear them for six weeks. Dressing Care: You will likely have a purple VAC dressing after surgery. This dressing will keep the incision dry and promote early healing. After about 7 days the batteries will wear out and the VAC will lose suction. Simply remove the dressing at that time and throw everything away, including the small suction machine. Then, you may leave the callie open to air or cover them with a dry dressing so they do not rub on your pants. The callie will be removed at your 2 week follow-up appointment. Showering: You may shower immediately with the purple VAC dressing. Let the shower spray hit your opposite side and slowly pat the plastic dry. Do not soak the dressing. After the dressing is removed you may shower normally with the callie exposed. Let soapy water run over the callie and pat them dry. Things To Watch For: * Drainage from the incision site that occurs more than one week after your surgery. * Increased redness at the incision site. * Fever above 102 degrees Fahrenheit. * Unusual chest pain or shortness of breath. * Call [facility] at with any of the above problems Follow-Up Visit: Follow-up with Dr. Vargas 2-3 weeks after your day of surgery. An appointment was probably scheduled when you signed-up for surgery in the office. If you have any questions call Office Instructions: More detailed instructions as well as Frequently Asked Questions were provided in a folder by our office when you signed-up for surgery. Please review these instructions when you get home. If you have any further questions or concerns, please feel free to call the office at [phone] Pending Studies at Discharge: No Stand-Alone Forms: My [facility] Medications and DC Order Prescriptions: New tramadol 50 mg tablet 50 mg PO Q6H PRN (Reason: pain) Qty: 30 RF: 0 aspirin [Ecotrin Low Strength] 81 mg Tablet,Delayed Release (Dr/Ec) 81 mg PO BID 42 Days Qty: 0 RF: 0 Continued buspirone 5 mg tablet 5 mg PO BID Qty: 180 RF: 3 cholecalciferol (vitamin D3) 1,000 unit capsule 1,000 units PO DAILY Qty: 90 RF: 3 Lacto.acidophilus-Bif.animalis 31 billion cell capsule 1 cap PO DAILY Qty: 90 RF: 3 cyanocobalamin (vitamin B-12) 1,000 mcg tablet 5,000 mcg PO DAILY RF: 0 rosuvastatin 10 mg tablet 10 mg PO QPM Qty: 90 RF: 3 amoxicillin 500 mg tablet 2,000 mg PO ONCE Qty: 4 RF: 2 multivitamin Tablet 1 tab PO QAM RF: 0 melatonin 5 mg Tablet 5 mg PO HS RF: 0 sertraline 100 mg tablet 100 mg PO QPM RF: 0 Discharge Orders: Discharge Order (Routine); Ordered 06/13/19 Ordered By: Clemente Vargas Admission Data Admit Date/Time: 06/12/19 14:09 Attending Provider: Clemente Vargas Admit Provider: Clemente Vargas Primary Care Provider: Madelyn Ralph Coding Level of Care Code D/C Day Management <30 mins Diagnoses History of left hip replacement Z96.642
[2019-06-14] MEDS: MULTIVITAMIN TAB PO SCH (10:07)
[2019-06-14] MEDS: DOCUSATE SODIUM 100 MG CAP PO SCH (10:07)
[2019-06-14] MEDS: ASPIRIN 81 MG ECTAB PO SCH (10:07)
== END 2019-06-14 10:59 | disposition home or self-care (01) | DRG 470 ==
LOC: ASU 10:46 → 3E 14:09